=== PATIENT | male | born 1975 | race Caucasian/White ===

== ENCOUNTER 2024-09-05 11:36 | Emergency (ER) | payer MEDICAID ==
[~2024-09-05] VITALS: Ht 172.7 cm; Wt 93.9 kg
[2024-09-05 12:21] LABS: BASOPHILS # (AUTO) 0.1 K/UL (0.0-0.2); BASOPHILS % (AUTO) 0.4 % (0.0-2.0); HEMATOCRIT 41.3 % (36.7-47.1); LYMPHOCYTES # (AUTO) 1.1 K/uL (0.8-4.8); LYMPHOCYTES % (AUTO) 4.2 % (20.5-51.5); MEAN CORPUSCULAR HEMOGLOBIN 30.4 uug (23.8-33.4); MEAN CORPUSCULAR HGB CONC 34 g/dL (32.5-36.3); MEAN CORPUSCULAR VOLUME 89.4 fL (73.0-96.2); MONOCYTES % (AUTO) 7.5 % (0.0-11.0); NEUTROPHILS # (AUTO) 22.8 K/uL (1.8-8.9); NEUTROPHILS % (AUTO) 87.9 % (38.5-71.5); PLATELET COUNT (AUTO) 211 K/uL (152-348); RED BLOOD CELL COUNT(AUTO) 4.62 MIL/uL (4.06-5.63); RED CELL DISTRIBUTION WIDTH 13.1 % (12.1-16.2)
[2024-09-05] MEDS ORDERED: LIDOCAINE 2%-EPI 1:100,000 20 ML VIAL ONE (12:30)
[2024-09-05] MEDS: LIDOCAINE 1%-EPI 1:100,000 20 ML VIAL IJ ONE (12:36)
[2024-09-05 12:44] LABS: DIFFERENTIAL COMMENT 1
[2024-09-05 13:35] LABS: CALCIUM 8.8 mg/dL (8.5-10.1); CREATININE 1.5 mg/dL (0.6-1.3); POTASSIUM 4.1 mmol/L (3.5-5.1)
[2024-09-05] MEDS ORDERED: METRONIDAZOLE 500 MG/NS 100ML 100 ML IV ONE (13:49)
[2024-09-05] MEDS: IV NORMAL SALINE 1000 ML BAG IV ONE (13:59)
[2024-09-05] MEDS: METRONIDAZOLE 500 MG/NS 100 ML PIGGYBACK IV ONE (14:00)
[2024-09-05] MEDS ORDERED: CEFTRIAXONE /D5W 50ML IVPB **ER PYXIS IV ONE (14:12)
[2024-09-05] MEDS: CEFTRIAXONE 2 G in IV DEXTROSE 5% 100 ML IV ONE (14:19)
[2024-09-05 16:24] LABS: BASOPHILS % (AUTO) 0.1 % (0.0-2.0); HEMATOCRIT 38.2 % (36.7-47.1); HEMOGLOBIN 13.1 g/dL (12.5-16.3); LYMPHOCYTES % (AUTO) 4.3 % (20.5-51.5); MEAN CORPUSCULAR HEMOGLOBIN 30.5 uug (23.8-33.4); MEAN CORPUSCULAR HGB CONC 34 g/dL (32.5-36.3); MEAN CORPUSCULAR VOLUME 88.7 fL (73.0-96.2); MONOCYTES # (AUTO) 2.2 K/uL (0.1-1.30); MONOCYTES % (AUTO) 9.4 % (0.0-11.0); NEUTROPHILS # (AUTO) 20.1 K/uL (1.8-8.9); NEUTROPHILS % (AUTO) 86.2 % (38.5-71.5); PLATELET COUNT (AUTO) 182 K/uL (152-348); RED BLOOD CELL COUNT(AUTO) 4.31 MIL/uL (4.06-5.63); RED CELL DISTRIBUTION WIDTH 13.3 % (12.1-16.2); WHITE BLOOD COUNT (AUTO) 23.4 K/uL (3.6-10.2)
[2024-09-05 16:25] LABS: DIFFERENTIAL COMMENT 1
[2024-09-05 16:30] LABS: CALCIUM 8.2 mg/dL (8.5-10.1); CREATININE 1.1 mg/dL (0.6-1.3); POTASSIUM 3.6 mmol/L (3.5-5.1)
[2024-09-05] MEDS ORDERED: METR-147 PO (16:52)
[2024-09-05] MEDS ORDERED: ACET1TAB23 PO (16:52)
[2024-09-05] MEDS ORDERED: AMOX-430 PO (16:52)
[2024-09-05 17:25] VITALS: BP 146/85; TEMP 98.2; O2SAT 99
[2024-09-06] MEDS ORDERED: LOSA25TA27 PO (17:21)
[2024-09-06] MEDS ORDERED: GLIP5TAB13 PO (17:21)
== END 2024-09-05 17:25 | disposition home or self-care (01) ==
LOC: ER 11:36
DX: K61.0 Anal abscess (principal); E11.65 Type 2 diabetes mellitus with hyperglycemia; F17.200 Nicotine dependence, unspecified, uncomplicated; Z79.899 Other long term (current) drug therapy
CPT/HCPCS: 46050; 99284; 96365; 96367; 80048 ×2; 82962 ×2; 85025 ×2; 36415; J0696 ×2; J3490; J7040 ×2

== ENCOUNTER 2024-09-06 13:00 | Inpatient (IN) | payer MEDICAID ==
[~2024-09-06] VITALS: Ht 172.7 cm; Wt 99.1 kg
[~2024-09-06 13:00] MED LIST: ACET1TAB23 PO; AMOX-430 PO; METR-147 PO
[2024-09-06] MEDS ORDERED: METRONIDAZOLE 500 MG/NS 100ML 100 ML IV ONE (13:49)
[2024-09-06] MEDS ORDERED: CEFTRIAXONE /D5W 50ML IVPB **ER PYXIS IV ONE (13:49)
[2024-09-06] MEDS ORDERED: ONDANSETRON 4 MG/2 ML VIAL ONE (13:49)
[2024-09-06] MEDS ORDERED: HYDROMORPHONE 1 MG/1 ML DISP.SYRIN ONE (13:50)
[2024-09-06 13:52] LABS: BASOPHILS % (AUTO) 0.2 % (0.0-2.0); DIFFERENTIAL COMMENT 0; HEMOGLOBIN 12.7 g/dL (12.5-16.3); LYMPHOCYTES # (AUTO) 0.7 K/uL (0.8-4.8); LYMPHOCYTES % (AUTO) 2.9 % (20.5-51.5); MEAN CORPUSCULAR HEMOGLOBIN 29.9 uug (23.8-33.4); MEAN CORPUSCULAR HGB CONC 33 g/dL (32.5-36.3); MEAN CORPUSCULAR VOLUME 89.4 fL (73.0-96.2); MONOCYTES # (AUTO) 1.3 K/uL (0.1-1.30); MONOCYTES % (AUTO) 5.4 % (0.0-11.0); NEUTROPHILS # (AUTO) 21.7 K/uL (1.8-8.9); NEUTROPHILS % (AUTO) 91.5 % (38.5-71.5); PLATELET COUNT (AUTO) 143 K/uL (152-348); RED BLOOD CELL COUNT(AUTO) 4.25 MIL/uL (4.06-5.63); RED CELL DISTRIBUTION WIDTH 13.1 % (12.1-16.2); WHITE BLOOD COUNT (AUTO) 23.7 K/uL (3.6-10.2)
[2024-09-06] MEDS: IV NORMAL SALINE 1000 ML BAG IV ONE (14:04)
[2024-09-06] MEDS: CEFTRIAXONE 2 G in IV DEXTROSE 5% 100 ML IV ONE (14:04)
[2024-09-06] MEDS: HYDROMORPHONE 1 MG/1 ML DISP.SYRIN IV ONE (14:04)
[2024-09-06] MEDS: ONDANSETRON 4 MG/2 ML VIAL IV ONE (14:04)
[2024-09-06] MEDS ORDERED: SWABABLE VALVE TRANSFER SET EA MC ONE (14:07)
[2024-09-06] MEDS ORDERED: IOHEXOL 300MG/ML 100 ML INFUS..BTL ONE (14:07)
[2024-09-06] MEDS ORDERED: IV NORMAL SALINE 250 ML IV ONE (14:07)
[2024-09-06 14:18] LABS: ALANINE AMINOTRANSFERASE 52 U/L (16-63); ALBUMIN 2.3 g/dL (3.4-5.0); ALKALINE PHOSPHATASE 161 U/L (50-136); ASPARTATE AMINOTRANSFERASE 69 U/L (15-37); BILIRUBIN,DIRECT 0.3 mg/dL (0.0-0.2); BILIRUBIN,TOTAL 0.5 mg/dL (0.2-1.0); CALCIUM 8.7 mg/dL (8.5-10.1); CARBON DIOXIDE 26 mmol/L (21-32); CHLORIDE 88 mmol/L (98-107); CREATININE 1.5 mg/dL (0.6-1.3); NT-PRO BNP 947 pg/mL (0-125); POTASSIUM 3.8 mmol/L (3.5-5.1); SODIUM SERUM 126 mmol/L (136-145); TOTAL PROTEIN, SERUM 6.7 g/dL (6.4-8.2); UREA NITROGEN, BLOOD 23 mg/dL (7-18)
[2024-09-06 14:22] LABS: GLUCOSE 557 mg/dL (74-106); LACTIC ACID 2.9 mmol/L (0.4-2.0)
[2024-09-06] MEDS: METRONIDAZOLE 500 MG/NS 100ML 100 ML IV ONE (15:12)
[2024-09-06] MEDS ORDERED: MAGNESIUM HYDROXIDE 30 ML LIQUID UDC PO PRN (15:30)
[2024-09-06] MEDS ORDERED: REMEDY ESSENTIAL ZINC PASTE 113 GM TP PRN (15:30)
[2024-09-06] MEDS ORDERED: INSULIN REGULAR, HUMAN 1000 UNIT/10 ML VIAL ONE ×2 (16:13→23:42)
[2024-09-06] MEDS ORDERED: PIPERACILLIN SODIUM/TAZOBACTAM 3.375 G in IV DEXTROSE 5% 50 ML IV SCH (16:15)
[2024-09-06] MEDS ORDERED: INSULIN REGULAR, HUMAN 1000 UNIT/10 ML VIAL IV ONE (16:15)
[2024-09-06] MEDS: INSULIN REGULAR, HUMAN 1000 UNIT/10 ML VIAL IV ONE ×2 (16:18→18:21)
[2024-09-06] MEDS: BLOOD SUGAR DIAGNOSTIC 1 EACH STRIP VI SCH (16:30)
[2024-09-06] MEDS ORDERED: INSULIN REGULAR, HUMAN 1000 UNIT/10 ML VIAL SQ SCH (16:30)
[2024-09-06] MEDS ORDERED: DEXTROSE 50% 50 ML DISP.SYRIN IV PRN (17:15)
[2024-09-06] MEDS ORDERED: LOSA25TA27 PO (17:21)
[2024-09-06] MEDS ORDERED: GLIP5TAB13 PO (17:21)
[2024-09-06 17:44] LABS: HIV-1 p24 ANTIGEN NON REACTIVE (NONREACTIVE); HIV-1/2 ANTIBODY NON REACTIVE (NONREACTIVE)
[2024-09-06 18:10] LABS: *BILIRUBIN,URIN NEGATIVE (NEGATIVE); *BLOOD, URINE 2+ (NEGATIVE); *CLARITY,URINE CLEAR (CLEAR); *COLOR,URINE YELLOW (YELLOW); *KETONES,URINE 1+ (NEGATIVE); *PROTEIN,URINE TRACE (NEGATIVE); *UROBILINOGEN,URINE 0.2 E.U./dl (NORMAL); LEUKOCYTE ESTERASE ,URINE NEGATIVE (NEGATIVE); NITRITE, URINE NEGATIVE (NEGATIVE); UGLUCOSE 2+ (NEGATIVE)
[2024-09-06] MEDS: CLINDAMYCIN PHOSPHATE IV 900 MG in IV DEXTROSE 5% 100 ML IV SCH (18:13)
[2024-09-06 18:24] LABS: BACTERIA,URINE NONE SEEN /HPF (NONE SEEN); SQUAMOUS EPITHELIAL CELL,UR FEW /HPF (NONE SEEN); WBC,URINE 0-3 /HPF (0-3)
[2024-09-06] MEDS ORDERED: MIDAZOLAM HCL 2 MG/2 ML VIAL ONE (20:56)
[2024-09-06] MEDS ORDERED: FENTANYL CITRATE 100 MCG/2 ML AMPUL ONE (20:57)
[2024-09-06] MEDS: VANCOMYCIN IV 1,000 MG in IV DEXTROSE 5% 250 ML IV SCH (21:00)
[2024-09-06] MEDS ORDERED: SUCCINYLCHOLINE CHLORIDE 200 MG/10 ML VIAL ONE (21:06)
[2024-09-06] MEDS ORDERED: CLINDAMYCIN 600 MG PIGGYBACK**ER OMNI IV ONE (21:41)
[2024-09-06] MEDS ORDERED: VANCOMYCIN IV 200 ML ONE (21:50)
[2024-09-06] MEDS ORDERED: PIPERACILLIN/TAZOBACTAM/D5W 50 ML IV ONE (21:50)
[2024-09-06] MEDS ORDERED: MEROPENEM 1 G in IV NORMAL SALINE 100 ML IV SCH (22:00)
[2024-09-06] MEDS ORDERED: CLINDAMYCIN PHOSPHATE IV 900 MG in IV DEXTROSE 5% 100 ML IV SCH (22:00)
[2024-09-06] MEDS: PIPERACILLIN SODIUM/TAZOBACTAM 3.375 G in IV DEXTROSE 5% 100 ML IV SCH (23:30)
[2024-09-06] MEDS: BLOOD SUGAR DIAGNOSTIC 1 EACH STRIP VI ONE (23:45)
[2024-09-06] MEDS ORDERED: ONDANSETRON 4 MG/2 ML VIAL IV PRN (23:45)
[2024-09-06] MEDS ORDERED: FENTANYL CITRATE 100 MCG/2 ML AMPUL IV PRN ×2 (23:45)
[2024-09-06] MEDS: INSULIN REGULAR, HUMAN 1000 UNIT/10 ML VIAL SQ ONE (23:50)
[2024-09-07 00:25] VITALS: BP 98/62; O2SAT 92
[2024-09-07] MEDS: DOCUSATE SODIUM 100 MG CAPSULE PO SCH (00:57)
[2024-09-07] MEDS: IV NS 1000 ML 1,000 ML IV PRN (01:15)
[2024-09-07] MEDS ORDERED: METRONIDAZOLE 500 MG/NS 100ML 100 ML IV ONE (05:20)
[2024-09-07] MEDS: METRONIDAZOLE 500 MG/NS 100ML 500 MG in PREMIXED 1 EACH IV SCH (05:39)
[2024-09-07] MEDS ORDERED: METRONIDAZOLE 500 MG/NS 100ML 500 MG in PREMIXED 1 EACH IV SCH (06:00)
[2024-09-07 06:27] LABS: BASOPHILS % (AUTO) 0.2 % (0.0-2.0); EOSINOPHILS % (AUTO) 0.1 % (0.0-7.0); HEMATOCRIT 31.9 % (36.7-47.1); LYMPHOCYTES % (AUTO) 5.7 % (20.5-51.5); MEAN CORPUSCULAR HEMOGLOBIN 30.7 uug (23.8-33.4); MEAN CORPUSCULAR HGB CONC 35 g/dL (32.5-36.3); MEAN CORPUSCULAR VOLUME 88.9 fL (73.0-96.2); MONOCYTES # (AUTO) 1.2 K/uL (0.1-1.30); MONOCYTES % (AUTO) 6.7 % (0.0-11.0); NEUTROPHILS # (AUTO) 15.4 K/uL (1.8-8.9); NEUTROPHILS % (AUTO) 87.3 % (38.5-71.5); PLATELET COUNT (AUTO) 104 K/uL (152-348); RED BLOOD CELL COUNT(AUTO) 3.59 MIL/uL (4.06-5.63); RED CELL DISTRIBUTION WIDTH 13.2 % (12.1-16.2); WHITE BLOOD COUNT (AUTO) 17.6 K/uL (3.6-10.2)
[2024-09-07 06:50] LABS: ALBUMIN 1.6 g/dL (3.4-5.0); CALCIUM 7.6 mg/dL (8.5-10.1); CREATININE 1.2 mg/dL (0.6-1.3); MAGNESIUM 2.4 mg/dL (1.8-2.4); PHOSPHOROUS 2.4 mg/dL (2.5-4.9); POTASSIUM 3.4 mmol/L (3.5-5.1)
[2024-09-07] MEDS: PANTOPRAZOLE SODIUM 40 MG TABLET.DR PO SCH (06:51)
[2024-09-07 07:21] VITALS: BP 101/68; TEMP 98.2; O2SAT 97
[2024-09-07] MEDS: INSULIN REGULAR, HUMAN 1000 UNIT/10 ML VIAL SQ PRN (08:18)
[2024-09-07] MEDS: SODIUM HYPOCHLORITE 0.125% (QUARTER STRENGTH) 473 ML BOTTLE TP SCH (09:39)
[2024-09-07] MEDS: POTASSIUM CHLORIDE 20 MEQ TAB.PRT.SR PO ONE (10:01)
[2024-09-07 11:20] VITALS: BP 115/58; TEMP 98.6; O2SAT 97
[2024-09-07] MEDS: VANCOMYCIN HCL 1,500 MG in IV DEXTROSE 5% 500 ML IV SCH (14:36)
[2024-09-07 16:00] VITALS: BP 116/69; TEMP 98.7; O2SAT 97
[2024-09-07] MEDS: glipiZIDE 5 MG TABLET PO SCH (16:45)
[2024-09-07] MEDS: NEUTRA PHOS PACKET PO ONE (16:45)
[2024-09-07 20:00] VITALS: BP 107/60; TEMP 99; O2SAT 97
[2024-09-07] MEDS: ACETAMINOPHEN 325 MG TABLET PO PRN (20:54)
[2024-09-08 06:16] VITALS: BP 118/84; TEMP 97.3; O2SAT 93
[2024-09-08 06:28] LABS: BASOPHILS % (AUTO) 0.3 % (0.0-2.0); EOSINOPHILS % (AUTO) 0.3 % (0.0-7.0); HEMATOCRIT 32.2 % (36.7-47.1); HEMOGLOBIN 11.1 g/dL (12.5-16.3); LYMPHOCYTES # (AUTO) 1.7 K/uL (0.8-4.8); LYMPHOCYTES % (AUTO) 10.5 % (20.5-51.5); MEAN CORPUSCULAR HEMOGLOBIN 30.6 uug (23.8-33.4); MEAN CORPUSCULAR HGB CONC 34 g/dL (32.5-36.3); MEAN CORPUSCULAR VOLUME 88.7 fL (73.0-96.2); MONOCYTES # (AUTO) 1.7 K/uL (0.1-1.30); MONOCYTES % (AUTO) 10.4 % (0.0-11.0); NEUTROPHILS # (AUTO) 12.5 K/uL (1.8-8.9); NEUTROPHILS % (AUTO) 78.5 % (38.5-71.5); PLATELET COUNT (AUTO) 139 K/uL (152-348); RED BLOOD CELL COUNT(AUTO) 3.63 MIL/uL (4.06-5.63); RED CELL DISTRIBUTION WIDTH 13.5 % (12.1-16.2); WHITE BLOOD COUNT (AUTO) 15.9 K/uL (3.6-10.2)
[2024-09-08 06:42] LABS: DIFFERENTIAL COMMENT 1
[2024-09-08 07:06] LABS: CALCIUM 7.9 mg/dL (8.5-10.1); CREATININE 1.4 mg/dL (0.6-1.3); MAGNESIUM 2.4 mg/dL (1.8-2.4); PHOSPHOROUS 2.8 mg/dL (2.5-4.9)
[2024-09-08] MEDS: ARGININE/GLUTAMINE/CALCIUM BMB 1 EACH POWD.PACK PO SCH (09:00)
[2024-09-08] MEDS: LOSARTAN POTASSIUM 25 MG TABLET PO SCH (10:42)
[2024-09-08 11:32] VITALS: BP 125/72; TEMP 98; O2SAT 95
[2024-09-08] MEDS: POTASSIUM CHLORIDE 20 MEQ TAB.PRT.SR PO ONE (12:48)
[2024-09-08] MEDS: MORPHINE SULFATE 2 MG/1 ML DISP.SYRIN IV PRN (15:16)
[2024-09-08] MEDS: ONDANSETRON 4 MG/2 ML VIAL IV PRN (15:16)
[2024-09-08 16:00] VITALS: BP 121/88; TEMP 98.1; O2SAT 96
[2024-09-08 21:40] VITALS: BP 124/80; TEMP 98.2; O2SAT 95
[2024-09-08] MEDS: INSULIN REGULAR, HUMAN 300 UNITS/3 ML VIAL SQ PRN (21:42)
[2024-09-09 06:25] VITALS: BP 158/99; TEMP 98.7; O2SAT 96
[2024-09-09 06:45] LABS: BASOPHILS # (AUTO) 0.1 K/UL (0.0-0.2); BASOPHILS % (AUTO) 0.5 % (0.0-2.0); EOSINOPHILS # (AUTO) 0.1 K/uL (0.0-0.7); EOSINOPHILS % (AUTO) 0.7 % (0.0-7.0); HEMATOCRIT 32.3 % (36.7-47.1); HEMOGLOBIN 11.1 g/dL (12.5-16.3); LYMPHOCYTES # (AUTO) 1.6 K/uL (0.8-4.8); LYMPHOCYTES % (AUTO) 13.6 % (20.5-51.5); MEAN CORPUSCULAR HEMOGLOBIN 30.4 uug (23.8-33.4); MEAN CORPUSCULAR HGB CONC 34 g/dL (32.5-36.3); MEAN CORPUSCULAR VOLUME 88.5 fL (73.0-96.2); MONOCYTES # (AUTO) 2.3 K/uL (0.1-1.30); MONOCYTES % (AUTO) 18.9 % (0.0-11.0); NEUTROPHILS # (AUTO) 7.9 K/uL (1.8-8.9); NEUTROPHILS % (AUTO) 66.3 % (38.5-71.5); PLATELET COUNT (AUTO) 170 K/uL (152-348); RED BLOOD CELL COUNT(AUTO) 3.65 MIL/uL (4.06-5.63); RED CELL DISTRIBUTION WIDTH 13.6 % (12.1-16.2); WHITE BLOOD COUNT (AUTO) 11.9 K/uL (3.6-10.2)
[2024-09-09 07:18] LABS: CALCIUM 8.1 mg/dL (8.5-10.1); CREATININE 1.6 mg/dL (0.6-1.3); DIFFERENTIAL COMMENT 1; POTASSIUM 3.3 mmol/L (3.5-5.1)
[2024-09-09] MEDS: POTASSIUM CHLORIDE 20 MEQ TAB.PRT.SR PO ONE (08:41)
[2024-09-09 08:59] LABS: BAND % (MANUAL) 4 % (0-10); LYMPHOCYTES % (MANUAL) 11 % (20-40); MONOCYTES % (MANUAL) 11 % (2-10); NEUTROPHILS % (MANUAL) 74 % (42-75); PLATELET ESTIMATE ADEQUATE
[2024-09-09 11:38] VITALS: BP 131/92; TEMP 98.1; O2SAT 97
[2024-09-09 11:40] VITALS: BP 148/54; TEMP 98.1; O2SAT 97
[2024-09-09 16:05] VITALS: BP 138/92; TEMP 97.9; O2SAT 97
[2024-09-09 19:00] VITALS: BP 143/71; TEMP 98; O2SAT 95
[2024-09-10 04:20] VITALS: BP 158/91; TEMP 98.3
[2024-09-10 07:03] LABS: BASOPHILS # (AUTO) 0.1 K/UL (0.0-0.2); BASOPHILS % (AUTO) 0.4 % (0.0-2.0); EOSINOPHILS # (AUTO) 0.2 K/uL (0.0-0.7); EOSINOPHILS % (AUTO) 1.3 % (0.0-7.0); HEMATOCRIT 31.7 % (36.7-47.1); LYMPHOCYTES # (AUTO) 1.6 K/uL (0.8-4.8); LYMPHOCYTES % (AUTO) 13.2 % (20.5-51.5); MEAN CORPUSCULAR HEMOGLOBIN 30.5 uug (23.8-33.4); MEAN CORPUSCULAR HGB CONC 35 g/dL (32.5-36.3); MEAN CORPUSCULAR VOLUME 88.1 fL (73.0-96.2); MONOCYTES # (AUTO) 2.2 K/uL (0.1-1.30); MONOCYTES % (AUTO) 18.3 % (0.0-11.0); NEUTROPHILS # (AUTO) 7.9 K/uL (1.8-8.9); NEUTROPHILS % (AUTO) 66.8 % (38.5-71.5); PLATELET COUNT (AUTO) 212 K/uL (152-348); RED CELL DISTRIBUTION WIDTH 13.6 % (12.1-16.2); WHITE BLOOD COUNT (AUTO) 11.8 K/uL (3.6-10.2)
[2024-09-10 07:19] LABS: DIFFERENTIAL COMMENT 1
[2024-09-10 07:44] LABS: ALBUMIN 1.7 g/dL (3.4-5.0); BILIRUBIN,DIRECT 0.3 mg/dL (0.0-0.2); BILIRUBIN,TOTAL 0.5 mg/dL (0.2-1.0); CALCIUM 8.3 mg/dL (8.5-10.1); CREATININE 1.4 mg/dL (0.6-1.3); MAGNESIUM 2.1 mg/dL (1.8-2.4); PHOSPHOROUS 3.7 mg/dL (2.5-4.9); POTASSIUM 3.2 mmol/L (3.5-5.1)
[2024-09-10 09:57] LABS: EOSINOPHILS % (MANUAL) 2 % (0-8); LYMPHOCYTES % (MANUAL) 13 % (20-40); MONOCYTES % (MANUAL) 18 % (2-10); NEUTROPHILS % (MANUAL) 67 % (42-75); PLATELET ESTIMATE ADEQUATE
[2024-09-10] MEDS: POTASSIUM CHLORIDE 20 MEQ TAB.PRT.SR PO ONE (10:28)
[2024-09-10 11:22] VITALS: BP 147/90; TEMP 98.7; O2SAT 90
[2024-09-10] MEDS: VANCOMYCIN HCL 1,500 MG in IV DEXTROSE 5% 500 ML IV SCH (14:08)
[2024-09-10 15:06] VITALS: BP 145/83; TEMP 98.3; O2SAT 97
[2024-09-10] MEDS ORDERED: AMOX-430 PO (17:23)
[2024-09-10] MEDS ORDERED: DOXY100C5 PO (17:23)
[2024-09-10] MEDS ORDERED: GLIP10TA11 PO (19:06)
[2024-09-10] MEDS ORDERED: ISOP1TOW MC (19:06)
[2024-09-10] MEDS ORDERED: [UNRECOGNIZED DRUG - CODE] MC (19:06)
[2024-09-10] MEDS ORDERED: LANC-576 MC (19:06)
[2024-09-10] MEDS ORDERED: LANC1COM7 MC (19:11)
[2024-09-11] MEDS ORDERED: BLOO1EAC70 MC (17:04)
== END 2024-09-10 19:09 | disposition home or self-care (01) | DRG 710 ==
LOC: ER 13:05 → MEDSURG3 16:51
PROVIDERS: ADMIT Nurse Practitioner Family; ATTEND Nurse Practitioner Family
PROC: 0VB50ZZ Excision of Scrotum, Open Approach (ICD-10-PCS; principal; 2024-09-06)
PROC: 0J9B0ZZ Drainage of Perineum Subcutaneous Tissue and Fascia, Open Approach (ICD-10-PCS; principal; 2024-09-06)
PROC: 0DJD8ZZ Inspection of Lower Intestinal Tract, Via Natural or Artificial Opening Endoscopic (ICD-10-PCS; principal; 2024-09-06)
PROC: 0JBB0ZZ Excision of Perineum Subcutaneous Tissue and Fascia, Open Approach (ICD-10-PCS; principal; 2024-09-06)
DX: A41.01 Sepsis due to Methicillin susceptible Staphylococcus aureus (principal); N17.0 Acute kidney failure with tubular necrosis; E87.20 Acidosis, unspecified; E46 Unspecified protein-calorie malnutrition; E87.1 Hypo-osmolality and hyponatremia; E11.65 Type 2 diabetes mellitus with hyperglycemia; L02.31 Cutaneous abscess of buttock; A41.51 Sepsis due to Escherichia coli [E. coli]; N49.3 Fournier gangrene; K61.0 Anal abscess; E88.09 Other disorders of plasma-protein metabolism, not elsewhere classified; Z68.31 Body mass index [BMI] 31.0-31.9, adult; N50.89 Other specified disorders of the male genital organs; F12.90 Cannabis use, unspecified, uncomplicated; F17.210 Nicotine dependence, cigarettes, uncomplicated; E87.5 Hyperkalemia; E66.9 Obesity, unspecified; Z68.33 Body mass index [BMI] 33.0-33.9, adult; R65.20 Severe sepsis without septic shock; E87.6 Hypokalemia; I10 Essential (primary) hypertension; Z79.84 Long term (current) use of oral hypoglycemic drugs
CPT/HCPCS: 36415; 70030-TC; 71045; 76870; 83605; 83735; 83970; 84100; 84155; 84165; 84484; 85025; 85730; 86803; 86850; 86900; 86901; 87040; 87806; A4606; A4649; A4663; G0378; J0330; J0696; J1171; J1815; J2250; J2270; J2405; J2543; J3010; J3370; J3371; J3490; J7040; J7050; J7060; Q9967